=== PATIENT | male | born 1960 | race Caucasian/White ===

== ENCOUNTER 2018-01-04 09:16 | Emergency (ER) | payer OTHER ==
[~2018-01-04] VITALS: Ht 162.6 cm; Wt 75.0 kg
[2018-01-04] MEDS ORDERED: HYDR25TA PO (09:36)
[2018-01-04] MEDS ORDERED: LISI-662 PO (09:36)
[2018-01-04] MEDS ORDERED: IBUPROFEN 600 MG TABLET PO ONE (10:15)
[2018-01-04 10:38] VITALS: BP 110/69
== END 2018-01-04 11:16 | disposition home or self-care (01) ==
LOC: EMS 09:18
DX: S90.121A Contusion of right lesser toe(s) without damage to nail, initial encounter (principal); I10 Essential (primary) hypertension; F17.210 Nicotine dependence, cigarettes, uncomplicated; W45.8XXA Other foreign body or object entering through skin, initial encounter; Y93.01 Activity, walking, marching and hiking; Y92.89 Other specified places as the place of occurrence of the external cause; Y99.8 Other external cause status
CPT/HCPCS: 99284

== ENCOUNTER 2018-06-02 16:23 | Emergency (ER) | payer OTHER ==
[~2018-06-02] VITALS: Ht 162.6 cm; Wt 75.0 kg
[~2018-06-02 16:23] MED LIST: HYDR25TA PO; LISI-662 PO
[2018-06-02 20:27] VITALS: BP 154/90
== END 2018-06-02 20:32 | disposition home or self-care (01) ==
LOC: EMS 16:24
DX: L03.113 Cellulitis of right upper limb (principal); I10 Essential (primary) hypertension; F17.210 Nicotine dependence, cigarettes, uncomplicated; Z79.899 Other long term (current) drug therapy